=== PATIENT | female | born 1980 | race Caucasian/White ===

== ENCOUNTER 2021-03-20 23:46 | Emergency (ER) | payer OTHER, SELFPAY ==
[2021-03-20 23:48] VITALS: BP 149/88; PULSE 106; RESP 14; TEMP 36.3; O2SAT 100; BMI 23.3
--- NOTE | 2021-03-20 23:59 | EKG12_ITS ---
Test Reason : DYSRHYTHMIA Blood Pressure : / mmHG Vent. Rate : 093 BPM Atrial Rate : 093 BPM P-R Int : 198 ms QRS Dur : 092 ms QT Int : 388 ms P-R-T Axes : 059 058 010 degrees QTc Int : 482 ms Normal sinus rhythm Prolonged QT Abnormal ECG Confirmed by MARK PLATA, MARTINA ([id number]), business editor SHAYY MAZARIEGOS ([id number]) on 03/24/2021 9:37:00 AM Referred By: CL Confirmed By:CHRISTAL FLORES MD
[2021-03-21] MEDS: LORazepam 2 MG/ML Syringe 0.5 MG IV (00:21)
[2021-03-21 00:28] LABS: Absolute Lymphocyte Count 1.87 X10^3/uL (0.83-4.51); Absolute Neutrophil Count 4.5 X10^3/uL (2.0-7.7); Basophil# 0.03 X10^3/uL; Basophil% 0.4 % (0-1); Eosinophil# 0.08 X10^3/uL; Eosinophils% 1.1 % (0-5); Hematocrit 43.9 % (37-47); Hemoglobin 14.9 g/dL (12.0-15.0); Lymphocyte # 1.87 X10^3/ul (0.83-4.51); Lymphocyte % 25.8 % (19-41); Mean Corp Hgb Conc 33.9 g/dL (32-36); Mean Corpuscular Volume 88.5 fL (81-99); Mean Platelet Vol. 9.7 fl (6.2-12.0); Monocyte# 0.76 X10^3/uL; Monocyte% 10.5 % (0-10); NRBC Flagged by Analyzer 0 % (0-5); Neutrophil # 4.49 X10^3/uL (2.7-7.7); Neutrophil % 61.9 % (47-70); Platelet Count 240 K/mm3 (150-450); RBC Distribution Width CV 12.2 % (11.6-14.6); RBC Distribution Width SD 39.5 fl (35.1-43.9); Red Blood Count 4.96 M/mm3 (4.2-5.4); White Blood Count 7.3 K/mm3 (4.4-11.0)
[2021-03-21 00:41] LABS: Red Blood Cells-Urine 0 SEEN /hpf (0-5)
[2021-03-21 00:47] LABS: Anion Gap 5 (5-15); BUN 13 mg/dL (7-18); BUN/Creat Ratio 15.1 RATIO (10-20); Calcium,Total 8.9 mg/dL (8.5-10.1); Chloride 108 mmol/L (98-107); Creatinine, Serum 0.86 mg/dL (0.55-1.02); EST Glomerular Filtration Rate 78 mL/min (>60); Est Glom Filt Rate - Afr Amer 94 mL/min (>60); Estimated Creatinine Clearance 71.93 ml/min; Glucose 134 mg/dL (74-106); Sodium Level 139 mmol/L (136-145)
[2021-03-21 00:51] LABS: Color, Urine Yellow (Yellow); Glucose, Dipstick Normal (Normal); Ketone-Dipstick Negative (Negative); Leukocyte Esterase-Dipstick Negative /ul (Negative); Nitrite-Dipstick Negative (Negative); Occult Blood-Urine Negative /ul (Negative); Protein-Dipstick 15 mg/dl (Negative); Urine Bilirubin Dipstick Negative (Negative); Urine Clarity Clear (Clear); Urine Urobilinogen Normal (Normal); Urine pH 6.5 (5.0 - 8.0)
[2021-03-21 01:00] LABS: Squamous Epithelial Cells - UA 0-5 SEEN /hpf (5-10); White Blood Cells 5-10 SEEN /hpf (0-5)
[2021-03-21 01:01] LABS: Bacteria RARE /hpf (None Seen); Mucous, Urine 1+ /hpf (<or=2+)
--- NOTE | 2021-03-21 01:16 | ED.VIS.GEN ---
History of Present Illness Chief Complaint: Seizure Informant: Patient Narrative: 40 year-old female presents with concern for syncope. Patient presents after having a small nosebleed at home and then lying down and having a syncopal episode where she was not responsive to her for approximately 20 seconds. Her states that it felt like she was rigid in nature. She had no shaking. Return to baseline immediately after this episode. Patient has no headache, vision change, nausea, vomiting, neck pain, chest pain, shortness of breath, fever, chills. Patient was concerned because she had received the J&J vaccine approximately 2 to 3 weeks ago. Patient had no symptoms prior to this. Patient has had multiple episodes of syncope in the past and she attributes this to her anxiety. Patient was on citalopram and is no longer taking this medication. States that she is having significant stress after hearing about the J&J vaccine. States that she has no symptoms at this time. Past Medical History - Allergies and Home Meds Allergies/Adverse Reactions: Allergies No Known Allergies Allergy (Verified 03/20/21 23:47) Primary Care Physician: Syeda Nelson QUILTING MACHINE OPERATOR, QUILTING MACHINE OPERATOR-C [Primary Care Provider] - Smoking Status: Never smoker Review of Systems General: Denies: Chills, Fever, Sweats Eyes: Denies: Visual changes - bilaterally, Diplopia ENT: Denies: Rhinorrhea, Sore throat Cardiovascular: Denies: Chest pain, Palpitations Respiratory: Denies: Dyspnea, Cough, Dyspnea on exertion Gastrointestinal: Denies: Abdominal pain, Nausea, Vomiting, Diarrhea, Melena, Hematochezia Genitourinary: Denies: Dysuria, Hematuria, Frequency Musculoskeletal: Denies: Back pain, Extremity Pain Skin: Denies: Rash, Wounds Neurological: Reports: - - Syncope. Denies: Headache, Weakness, Numbness Physical Exam Vital Signs/Narrative: Vital Signs Temp Pulse Resp BP Pulse Ox 03/20/21 23:48 97.3 F L 106 H 14 149/88 H 100 Inital Vital Signs reviewed: Yes General: Well nourished, Well developed, No Acute Distress Head: Normocephalic, Atraumatic Eyes: Perrl, EOMI ENT: Moist mucous membranes, No rhinorrhea Neck: Supple, Nontender Cardiovascular: Regular rate, Regular rhythm, No murmurs Respiratory: No distress, CTA bilaterally, Chest nontender Abdomen: Soft, Nontender, Nondistended, Normal bowel sounds Back: Nontender, Normal Inspection Extremities: Nontender, No edema Skin: Normal color, No rash Neurological: Alert, Oriented x3, Cranial nerves II-XII grossly intact, Normal Strength, Normal Sensation, Normal DTR Psychological: Normal affect, Normal Mood Diagnostic/Tx/Re-eval Clinical Impression(s) from Imaging Studies Brain CT 03/21/21 23:59 IMPRESSION: Normal unenhanced CT scan of the brain. Electronically Signed: Yumiko Garcia MD at 0:53 EDT , Service support , Laboratory Data 03/21/21 03/21/21 03/21/21 00:14 00:20 00:20 WBC 7.3 RBC 4.96 Hgb 14.9 Hct 43.9 MCV 88.5 MCH 30.0 MCHC 33.9 RDW Std Deviation 39.5 RDW Coeff of Jose 12.2 Plt Count 240 MPV 9.7 Immature Gran % (Auto) 0.300 Neut % (Auto) 61.9 Lymph % (Auto) 25.8 [place] % (Auto) 10.5 H Eos % (Auto) 1.1 Baso % (Auto) 0.4 Absolute Neuts (auto) 4.5 Absolute Lymphs (auto) 1.87 Nucleated RBC % 0 Sodium 139 Potassium 3.0 L Chloride 108 H Carbon Dioxide 26.0 Anion Gap 5 BUN 13 Creatinine 0.86 Estim Creat Clear Calc 71.93 Est GFR (MDRD) Af Amer 94 Est GFR (MDRD) Non-Af 78 BUN/Creatinine Ratio 15.1 Glucose 134 H Calcium 8.9 Urine Color Yellow Urine Clarity Clear Urine pH 6.5 Ur Specific [place] 1.020 Urine Protein 15 H Urine Glucose (UA) Normal Urine Ketones Negative Urine Occult Blood Negative Urine Nitrite Negative Urine Bilirubin Negative Urine Urobilinogen Normal Ur Leukocyte Esterase Negative Urine RBC 0 SEEN Urine WBC 5-10 SEEN Ur Squamous Epith Cells 0-5 SEEN Urine Bacteria RARE Urine Mucus 1+ - Rhythm Strip Rhythm Strip: Sinus Rhythm Rate: 93 Ectopy: None - EKG Initial EKG Interpretation: Sinus Rhythm - Sinus rhythm at 93 bpm. [place] interval of 198 ms. Prolonged QT at [address] ms[address] No evidence of ST elevation or depression at this time. - Medical Decision Making Patient appears well and nontoxic. No focal neurologic deficits. Unlikely to be a seizure. Patient returned immediately to baseline. Likely syncope with myoclonic activity. Lab work within normal limits other than some hypokalemia. Patient will be given potassium in the emergency department and for home. Patient was given some Ativan given her stated anxiety and does feel improved. States that she has been having trouble sleeping given her anxiety over the J&J vaccine. Will be given Vistaril to help with her insomnia. Patient was also advised to take some melatonin. CT brain negative. EKG nonischemic. No arrhythmia. Prolonged QT at 482 but otherwise normal. Patient has no evidence of thrombocytopenia. Patient will be given neurologic follow-up given her frequent episodes of syncope over the past 15 years. Asked to return for new or worsening symptoms. Stable at time of discharge. Impression: 1. Syncope with myoclonic activity 2. Hypokalemia ED Disposition - Plan for ED Patient: Disposition: Home or Assisted Living Instructions: ED Fainting, Uncertain Cause, ED Hypokalemia, ED Potassium-Rich Foods Prescriptions: Potassium Chloride 40 meq PO DAILY #10 [email or web address] Prescription Printed hydrOXYzine pamoate capsule [Vistaril] 50 mg PO QHS #14 capsule Prescription Printed Referrals: Syeda Nelson NP, QUILTING MACHINE OPERATOR-C [Primary Care Provider] - 2 Days Med Hough MD [STAFF PHYSICIAN] - 5-7 Days
[2021-03-21] MEDS: Potassium Chloride Oral Tablet 20 MEQ 40 MEQ PO (01:31)
[2021-03-21 01:33] VITALS: BP 152/73; PULSE 67; RESP 18; O2SAT 99
--- NOTE | 2021-03-21 23:59 | CT_ITS ---
STUDY: CT BRAIN WITHOUT CONTRAST REASON FOR EXAM: Female, 40 years old. syncope RADIATION DOSAGE (If Supplied By Facility): CTDIvol = ( 44.99 ) mGy, DLP = ( 779.24 ) mGycm TECHNIQUE: Transaxial CT imaging of the brain was performed without administration of intravenous contrast material. Individualized dose optimization techniques were used for this CT. COMPARISON: No relevant priors. FINDINGS: Normal soft tissue structures. Normal calvarium. Normal size ventricles and extra-axial spaces for the patient''s age. Normal white matter tracts of the cerebral hemispheres. Normal basal ganglia and thalami. Normal brainstem. Normal cerebellum. There is no intracranial hemorrhage. There are no findings of an acute ischemic infarction. Normal visualized paranasal sinuses. CT/Brain/Head without Contrast IMPRESSION: Normal unenhanced CT scan of the brain. Electronically Signed: Yumiko Garcia MD at 0:53 EDT , Service support ,
== END 2021-03-21 01:33 | disposition home or self-care (01) ==
PROVIDERS: Emergency Provider Emergency Medicine; PCP Registered Nurse
DX: R55 Syncope and collapse (principal); G25.3 Myoclonus; E87.6 Hypokalemia
CPT/HCPCS: 70450; 80048; 81001; 85025; 93005; 96374; 99284; A4216